=== PATIENT | female | born 1965 | race Caucasian/White ===

== ENCOUNTER 2018-03-02 16:26 | Outpatient (RCR) | payer BC, SELFPAY ==
[2018-03-02 20:51] LABS: Anion Gap 12.9 mmol/L (3-11); BUN 19 mg/dL (7-18); CO2 25.1 mmol/L (21.0-32.0); CREATININE 0.91 mg/dL (0.55-1.02); Calcium 10.2 mg/dL (8.5-10.1); Chloride 97 mmol/L (98-107); Glucose 127 mg/dL (70-100); Potassium 4.1 mmol/L (3.5-5.1); Sodium 135 mmol/L (136-145); TSH 0.99 uIU/mL (0.358-3.74)
== END 2018-03-10 23:59 | disposition home or self-care (01) ==
LOC: NCHCN 16:26
PROVIDERS: PCP Nurse Practitioner Family; Visit Provider Nurse Practitioner Family
DX: E11.9 Type 2 diabetes mellitus without complications (principal); I10 Essential (primary) hypertension; G89.4 Chronic pain syndrome; E03.9 Hypothyroidism, unspecified; F32.9 Major depressive disorder, single episode, unspecified; G43.909 Migraine, unspecified, not intractable, without status migrainosus
CPT/HCPCS: 80048; 84443

== ENCOUNTER 2018-10-19 14:47 | Outpatient (REF) | payer BC, SELFPAY ==
[2018-10-19 22:09] LABS: Potassium 3.8 mmol/L (3.5-5.1)
== END 2018-10-19 15:07 ==
LOC: NCHCN 14:47
PROVIDERS: PCP Nurse Practitioner Family; Visit Provider Nurse Practitioner Family
DX: E11.9 Type 2 diabetes mellitus without complications (principal); E66.9 Obesity, unspecified; I10 Essential (primary) hypertension; G89.4 Chronic pain syndrome; R25.2 Cramp and spasm
CPT/HCPCS: 84132

== ENCOUNTER 2019-04-04 18:17 | Outpatient (REF) | payer BC, SELFPAY ==
[2019-04-04 22:57] LABS: Hemoglobin A1C 6.1 % (4.5-6.2)
[2019-04-04 23:09] LABS: Anion Gap 12.2 mmol/L (3-11); BUN 16 mg/dL (7-18); CO2 27.8 mmol/L (21.0-32.0); CREATININE 1.01 mg/dL (0.55-1.02); Calcium 9.7 mg/dL (8.5-10.1); Chloride 98 mmol/L (98-107); Estimated GFR 57.34 (mL/min/1.73m2); Glucose 76 mg/dL (74-106); Magnesium 1.7 mg/dL (1.8-2.4); Potassium 3.8 mmol/L (3.5-5.1); Sodium 138 mmol/L (136-145); TSH 0.65 uIU/mL (0.36-3.74); Vitamin B12 1901 pg/mL (193-986)
== END 2019-04-04 18:37 ==
LOC: NCHCO 18:17
PROVIDERS: PCP Nurse Practitioner Family; Visit Provider Nurse Practitioner Family
DX: E03.9 Hypothyroidism, unspecified (principal); E11.9 Type 2 diabetes mellitus without complications; G89.4 Chronic pain syndrome; M54.5 Low back pain; M79.7 Fibromyalgia; G43.909 Migraine, unspecified, not intractable, without status migrainosus; Z51.81 Encounter for therapeutic drug level monitoring
CPT/HCPCS: 80048; 82607; 83036; 83735; 84443

== ENCOUNTER 2020-04-02 20:34 | Outpatient (REF) | payer OTHER, SELFPAY ==
[2020-04-02 22:05] LABS: Hemoglobin A1C 5.7 % (<5.7)
[2020-04-02 22:13] LABS: Anion Gap 12.4 mmol/L (3-11); BUN 18 mg/dL (7-18); CO2 26.6 mmol/L (21.0-32.0); CREATININE 1.08 mg/dL (0.55-1.02); Calcium 9.1 mg/dL (8.5-10.1); Chloride 100 mmol/L (98-107); Estimated GFR 52.87 (mL/min/1.73m2); Glucose 104 mg/dL (74-106); Magnesium 1.9 mg/dL (1.8-2.4); Potassium 3.8 mmol/L (3.5-5.1); Sodium 139 mmol/L (136-145); TSH 0.71 uIU/mL (0.36-3.74); Vitamin B12 1267 pg/mL (193-986)
[2020-04-02 23:12] LABS: COMMENT (LAB VIEW ONLY) 36.52 mg/dL
== END 2020-04-02 20:54 ==
LOC: NCHCN 20:34
PROVIDERS: PCP Nurse Practitioner Family; Visit Provider Nurse Practitioner Family
DX: E11.9 Type 2 diabetes mellitus without complications (principal); I10 Essential (primary) hypertension; E03.9 Hypothyroidism, unspecified; K21.9 Gastro-esophageal reflux disease without esophagitis; Z51.81 Encounter for therapeutic drug level monitoring
CPT/HCPCS: 80048; 82043; 82570; 82607; 83036; 83735; 84443

== ENCOUNTER 2021-02-25 17:02 | Outpatient (REF) | payer OTHER, SELFPAY ==
[2021-02-25 22:43] LABS: Anion Gap 10.3 mmol/L (3-11); BUN 13 mg/dL (7-18); CO2 27.7 mmol/L (21.0-32.0); CREATININE 1.1 mg/dL (0.55-1.02); Calcium 9.3 mg/dL (8.5-10.1); Chloride 98 mmol/L (98-107); Estimated GFR 51.57 (mL/min/1.73m2); Glucose 109 mg/dL (74-106); Potassium 3.4 mmol/L (3.5-5.1); Sodium 136 mmol/L (136-145); TSH 1.32 uIU/mL (0.36-3.74)
[2021-02-27 11:33] LABS: COVID-19 RT-PCR UVMMC Result Negative (Negative)
== END 2021-02-25 17:03 | disposition home or self-care (01) ==
LOC: NCHCN 17:02
PROVIDERS: PCP Nurse Practitioner Family; Visit Provider Nurse Practitioner Community Health
DX: R11.2 Nausea with vomiting, unspecified (principal); I10 Essential (primary) hypertension; E03.9 Hypothyroidism, unspecified; Z20.822 Contact with and (suspected) exposure to COVID-19
CPT/HCPCS: 80048; U0003; 84443

== ENCOUNTER 2021-04-23 15:02 | Outpatient (REF) | payer OTHER, SELFPAY ==
[2021-04-23 17:10] LABS: Calculated LDL 51 mg/dL (<100); Cholesterol 149 mg/dL (<200); HDL Cholesterol 84 mg/dL (40-60); Potassium 4.1 mmol/L (3.5-5.1); Triglyceride 74 mg/dL (<150)
== END 2021-04-23 15:03 | disposition home or self-care (01) ==
LOC: NCHCN 15:02
PROVIDERS: PCP Nurse Practitioner Family; Visit Provider Nurse Practitioner Family
DX: E11.9 Type 2 diabetes mellitus without complications (principal); E66.9 Obesity, unspecified; Z86.39 Personal history of other endocrine, nutritional and metabolic disease
CPT/HCPCS: 80061; 84132

== ENCOUNTER 2021-05-20 13:55 | Outpatient (REF) | payer OTHER, SELFPAY ==
[2021-05-20 21:53] LABS: COMMENT (LAB VIEW ONLY) 56.93 mg/dL; Microalb ug/mg Crea 24.8 ug/mg Cr
== END 2021-05-20 13:56 | disposition home or self-care (01) ==
LOC: NCHCN 13:55
PROVIDERS: PCP Nurse Practitioner Family; Visit Provider Nurse Practitioner Family
DX: I10 Essential (primary) hypertension (principal); E11.9 Type 2 diabetes mellitus without complications
CPT/HCPCS: 82043; 82570

== ENCOUNTER 2021-08-12 20:34 | Outpatient (REF) | payer OTHER, SELFPAY ==
[2021-08-14 11:34] LABS: COVID-19 RT-PCR UVMMC Result Negative (Negative)
== END 2021-08-12 20:35 | disposition home or self-care (01) ==
LOC: NCHCN 20:34
PROVIDERS: PCP Nurse Practitioner Family; Visit Provider Nurse Practitioner Family
DX: Z20.822 Contact with and (suspected) exposure to COVID-19 (principal); J06.9 Acute upper respiratory infection, unspecified
CPT/HCPCS: U0003

== ENCOUNTER 2022-02-24 11:19 | Outpatient (REF) | payer MEDICAID, SELFPAY ==
[2022-02-24 15:14] LABS: HCT 37.6 % (36.0-46.0); HGB 12.7 g/dL (11.2-15.7); MCH 29.5 pg (27.0-33.0); MCHC 33.8 % (32.0-36.0); MCV 87 fL (80-95); MPV 9.2 fL (8.0-11.0); Platelet Count 301 10^3/uL (130-400); RBC 4.31 10^6/uL (3.93-5.22); RDW 14.3 % (11.7-14.6); RDW-SD 45.3 fL; WBC 5.61 10^3/uL (4.4-10.8)
[2022-02-24 16:13] LABS: Hemoglobin A1C 6.1 % (<5.7)
[2022-02-24 16:19] LABS: ALT 27 U/L (14-59); AST 20 U/L (15-37); Alkaline Phosphatase 86 U/L (46-116); Anion Gap 11.5 mmol/L (3-11); BUN 8 mg/dL (7-18); Bilirubin, Total 0.3 mg/dL (0.2-1.0); CO2 25.5 mmol/L (21.0-32.0); CREATININE 0.8 mg/dL (0.55-1.02); Calcium 9.5 mg/dL (8.5-10.1); Chloride 102 mmol/L (98-107); Estimated GFR 86.42 (mL/min/1.73m2); Glucose 92 mg/dL (74-106); Magnesium 1.7 mg/dL (1.8-2.4); Potassium 4.1 mmol/L (3.5-5.1); Sodium 139 mmol/L (136-145); TSH 1.82 uIU/mL (0.36-3.74); Total Protein 7.4 g/dL (6.4-8.2); Vitamin B12 613 pg/mL (193-986)
== END 2022-02-24 11:20 | disposition home or self-care (01) ==
LOC: NCHCN 11:19
PROVIDERS: PCP Nurse Practitioner Family; Visit Provider Nurse Practitioner Family
DX: I10 Essential (primary) hypertension (principal); F51.04 Psychophysiologic insomnia; E11.9 Type 2 diabetes mellitus without complications; G43.909 Migraine, unspecified, not intractable, without status migrainosus; G89.4 Chronic pain syndrome; M54.59 Other low back pain; Z86.39 Personal history of other endocrine, nutritional and metabolic disease
CPT/HCPCS: 80053; 85027; 82607; 83036; 83735; 84443

== ENCOUNTER 2022-08-21 15:26 | Outpatient (REF) | payer MEDICAID, SELFPAY ==
[2022-08-21 16:34] LABS: COMMENT (LAB VIEW ONLY) 100.53 mg/dL; Microalb ug/mg Crea 13.4 ug/mg Cr
== END 2022-08-21 15:27 | disposition home or self-care (01) ==
LOC: NCHCN 15:26
PROVIDERS: PCP Nurse Practitioner Family; Visit Provider Nurse Practitioner Family
DX: E11.9 Type 2 diabetes mellitus without complications (principal)
CPT/HCPCS: 82043; 82570

== ENCOUNTER 2022-11-03 10:52 | Outpatient (REF) | payer MEDICAID, SELFPAY ==
--- NOTE | 2022-11-03 09:40 | PAPFT_PTH ---
PATIENT: Faith Olivares LOC: [facility]#:[id number] AGE/SX: 57/F ROOM: RE11/03/[address]: Yessenia Medina : 1965 BED: DIS: 11/03/2022 SPEC #: [id number] RECD: 11/03/22 18:03 STATUS: JOVANNY CASH #: [id number] RYAN: 11/03/22 09:[address]: Yessenia Lovell DEPT: [facility] Cytology RECD BY: Ila Shukla ENTERED: 11/03/22 18:03 SP TYPE: PAPFT OTHR DR: Jeanette Blanc Tissues: 1 - CX/ENDOCX FOR PAP SMEARS Procedures: PAP THIN PREP/[facility] Screening HPV DNA PROBE Comments: [id number]
== END 2022-11-03 10:53 | disposition home or self-care (01) ==
LOC: NCHCN 10:52
PROVIDERS: PCP Nurse Practitioner Family; Visit Provider Nurse Practitioner Family
DX: Z00.00 Encounter for general adult medical examination without abnormal findings (principal); Z11.51 Encounter for screening for human papillomavirus (HPV)
CPT/HCPCS: 88142; 87624

== ENCOUNTER 2023-05-12 14:43 | Outpatient (REF) | payer MEDICAID, SELFPAY ==
[2023-05-12 14:56] LABS: HCT 35.6 % (36.0-46.0); HGB 11.9 g/dL (11.2-15.7); MCH 29.3 pg (27.0-33.0); MCHC 33.4 % (32.0-36.0); MCV 88 fL (80-95); MPV 8.8 fL (8.0-11.0); Platelet Count 348 10^3/uL (130-400); RBC 4.06 10^6/uL (3.93-5.22); RDW 13.4 % (11.7-14.6); RDW-SD 43.8 fL; WBC 6.38 10^3/uL (4.4-10.8)
[2023-05-12 15:46] LABS: Hemoglobin A1C 5.5 % (<5.7)
[2023-05-12 15:56] LABS: BUN 13 mg/dL (7-18); CREATININE 0.9 mg/dL (0.55-1.02); Calcium 9.2 mg/dL (8.5-10.1); Chloride 100 mmol/L (98-107); Estimated GFR 74.57 (mL/min/1.73m2); Glucose 114 mg/dL (74-106); Potassium 3.5 mmol/L (3.5-5.1); Sodium 137 mmol/L (136-145); TSH 1.05 uIU/mL (0.36-3.74)
== END 2023-05-12 14:44 | disposition home or self-care (01) ==
LOC: NCHCN 14:43
PROVIDERS: PCP Nurse Practitioner Family; Visit Provider Nurse Practitioner Family
DX: E03.9 Hypothyroidism, unspecified (principal); I10 Essential (primary) hypertension; E11.9 Type 2 diabetes mellitus without complications
CPT/HCPCS: 80048; 85027; 83036; 84443

== ENCOUNTER 2024-03-28 18:10 | Outpatient (REF) | payer MEDICAID, SELFPAY ==
[2024-03-28 20:38] LABS: HCT 41.2 % (36.0-46.0); HGB 13.8 g/dL (11.2-15.7); MCH 29.2 pg (27.0-33.0); MCHC 33.5 % (32.0-36.0); MCV 87 fL (80-95); MPV 9.4 fL (8.0-11.0); Platelet Count 332 10^3/uL (130-400); RBC 4.72 10^6/uL (3.93-5.22); RDW 13.1 % (11.7-14.6); RDW-SD 42.1 fL; WBC 6.12 10^3/uL (4.4-10.8)
[2024-03-28 20:56] LABS: ALT 23 U/L (14-59); AST 22 U/L (15-37); Alkaline Phosphatase 92 U/L (46-116); Anion Gap 9.5 mmol/L (3-11); BUN 8 mg/dL (7-18); Bilirubin, Total 0.43 mg/dL (0.2-1.0); CO2 29.5 mmol/L (21.0-32.0); Calcium 9.8 mg/dL (8.5-10.1); Calculated LDL 46 mg/dL (<100); Chloride 102 mmol/L (98-107); Cholesterol 141 mg/dL (<200); Glucose 100 mg/dL (74-106); HDL Cholesterol 88 mg/dL (40-60); Lipase 35 U/L (16-77); Potassium 3.6 mmol/L (3.5-5.1); Sodium 141 mmol/L (136-145); TSH 1.23 uIU/mL (0.36-3.74); Total Protein 7.8 g/dL (6.4-8.2); Triglyceride 36 mg/dL (<150)
[2024-03-28 21:15] LABS: COMMENT (LAB VIEW ONLY) 179.47 mg/dL; Microalb ug/mg Crea 19.2 ug/mg Cr
== END 2024-03-28 18:11 | disposition home or self-care (01) ==
LOC: NCHCN 18:10
PROVIDERS: PCP Nurse Practitioner Family; Visit Provider Nurse Practitioner Family
DX: E11.9 Type 2 diabetes mellitus without complications (principal); I10 Essential (primary) hypertension; K30 Functional dyspepsia; Z13.0 Encounter for screening for diseases of the blood and blood-forming organs and certain disorders involving the immune mechanism
CPT/HCPCS: 80053; 80061; 83690; 85027; 82043; 82570; 84443

== ENCOUNTER 2024-07-06 11:09 | Outpatient (REF) | payer MEDICAID, SELFPAY ==
[2024-07-06 14:28] LABS: Abs Immature Grans 0.01 10^3/uL (0.0-0.06); Absolute Basophil Count 0.06 10^3/uL (0.0-0.2); Absolute Eosinophil Count 0.09 10^3/uL (0.0-0.7); Absolute Lymphocyte Count 2.26 10^3/uL (1.2-3.4); Absolute Monocyte Count 0.29 10^3/uL (0.1-0.8); Absolute Neutrophil Count 3.18 10^3/uL (1.2-6.7); Eosinophils % 1.5 %; HCT 36.1 % (36.0-46.0); HGB 12.2 g/dL (11.2-15.7); Immature Grans % 0.2 %; Lymphocytes % 38.4 %; MCH 29.8 pg (27.0-33.0); MCHC 33.8 % (32.0-36.0); MCV 88 fL (80-95); MPV 9.1 fL (8.0-11.0); Monocytes % 4.9 %; Platelet Count 269 10^3/uL (130-400); RBC 4.09 10^6/uL (3.93-5.22); RDW 13.2 % (11.7-14.6); RDW-SD 42.5 fL; WBC 5.89 10^3/uL (4.4-10.8)
[2024-07-06 14:47] LABS: Anion Gap 7.7 mmol/L (3-11); BUN 9 mg/dL (7-18); CO2 29.3 mmol/L (21.0-32.0); CREATININE 0.8 mg/dL (0.55-1.02); Calcium 9.9 mg/dL (8.5-10.1); Chloride 103 mmol/L (98-107); Estimated GFR 85.35 (mL/min/1.73m2); Glucose 111 mg/dL (74-106); Potassium 3.4 mmol/L (3.5-5.1); Sodium 140 mmol/L (136-145)
== END 2024-07-06 11:10 | disposition home or self-care (01) ==
LOC: LBN 11:09
PROVIDERS: PCP Nurse Practitioner Family; Visit Provider Podiatrist
DX: Z01.818 Encounter for other preprocedural examination (principal)
CPT/HCPCS: 80048; 85025

== ENCOUNTER 2024-09-13 16:50 | Outpatient (REF) | payer MEDICAID, SELFPAY ==
[2024-09-13 21:44] LABS: HCT 36.9 % (36.0-46.0); HGB 12.4 g/dL (11.2-15.7); MCH 29.8 pg (27.0-33.0); MCHC 33.6 % (32.0-36.0); MCV 89 fL (80-95); MPV 9.3 fL (8.0-11.0); Platelet Count 380 10^3/uL (130-400); RBC 4.16 10^6/uL (3.93-5.22); RDW 12.7 % (11.7-14.6); RDW-SD 41.5 fL
[2024-09-13 23:05] LABS: ALT 21 U/L (14-59); AST 22 U/L (15-37); Albumin 3.8 g/dL (3.4-5.0); Alkaline Phosphatase 86 U/L (46-116); Anion Gap 7.6 mmol/L (3-11); BUN 11 mg/dL (7-18); Bilirubin, Total 0.3 mg/dL (0.2-1.0); CO2 27.4 mmol/L (21.0-32.0); CREATININE 0.8 mg/dL (0.55-1.02); Calcium 9.6 mg/dL (8.5-10.1); Calculated LDL 54 mg/dL (<100); Chloride 102 mmol/L (98-107); Cholesterol 136 mg/dL (<200); Estimated GFR 85.35 (mL/min/1.73m2); Glucose 96 mg/dL (74-106); HDL Cholesterol 71 mg/dL (>or=50); Potassium 4.1 mmol/L (3.5-5.1); Sodium 137 mmol/L (136-145); TSH 1.76 uIU/mL (0.36-3.74); Total Protein 7.5 g/dL (6.4-8.2); Triglyceride 57 mg/dL (<150)
== END 2024-09-13 16:51 | disposition home or self-care (01) ==
LOC: NCHCN 16:50
PROVIDERS: PCP Nurse Practitioner Family; Visit Provider Nurse Practitioner Family
DX: E11.9 Type 2 diabetes mellitus without complications (principal); I10 Essential (primary) hypertension; E03.9 Hypothyroidism, unspecified
CPT/HCPCS: 80053; 80061; 85027; 84443